=== PATIENT | female | born 1945 | race Caucasian/White ===

== ENCOUNTER 2018-09-20 13:24 | Outpatient (CLI) | payer MEDICARE, OTHER ==
--- NOTE | 2018-09-20 14:40 | MRI ---
MR of the left shoulder without contrast INDICATION: Left shoulder pain. Concern for tear of the left rotator cuff TECHNIQUE: Sagittal T1, axial and coronal PD fat sat, sagittal and coronal T2 fat sat images were obt ained of the left shoulder. COMPARISON: None FINDINGS: Mild motion artifact limits image detail Rotator cuff: There is a high-grade bursal surface tear involving the anterior supraspinatus at the f ootprint measuring 0.4 x 1.0 cm in its greatest AP and mediolateral dimensions respectively. This involves approximately 90% of the tendon thickness. There is severe supraspinatus tendinosis and mode rate infraspinatus tendinosis. Glenohumeral joint: There is mild osteoarthrosis of the glenohumeral joint. There is moderate chondro sis involving the inferior humeral head and inferior glenoid articular surface. Glenoid labrum: There is abnormal linear increased T2 signal along the superior glenoid labrum extend ing into the biceps anchor on image 10 of series 7. This also extends into the posterior superior glenoid labrum. Findings are suspicious for a type IV SLAP tear. Biceps tendon and biceps anchor: The biceps tendon is located. There is abnormal linear signal involv ing the biceps anchor suspicious for tear. Acromion clavicular joint: There is moderate AC joint osteoarthrosis. Subacromial subdeltoid space: No appreciable fluid. Axillary region: No lymphadenopathy. Surrounding left shoulder musculature: No muscular atrophy is evident. IMPRESSION: 1. High-grade bursal surface tear of the anterior supraspinatus at the footprint superimposed on chau re supraspinatus tendinosis and moderate infraspinatus tendinosis. 2. Findings highly suspicious for a type IV SLAP tear of the glenoid labrum. 3. Moderate AC joint osteoarthrosis. 4. Mild glenohumeral joint osteoarthrosis.
== END 2018-09-20 13:25 | disposition home or self-care (01) ==
LOC: BICMRI 13:24
PROVIDERS: ATTEND Orthopaedic Surgery
DX: M75.102 Unspecified rotator cuff tear or rupture of left shoulder, not specified as traumatic (principal); M19.011 Primary osteoarthritis, right shoulder; M75.91 Shoulder lesion, unspecified, right shoulder

== ENCOUNTER 2018-11-10 00:47 | Outpatient (CLI) | payer MEDICARE, OTHER ==
[2018-11-10 14:22] LABS: #Basophils 0.1 thou/uL (0.0-0.2); #Eosinphils 0.1 thou/uL (0.0-0.7); #Lymphocytes 1.8 thou/uL (1.20-3.40); #Monocytes 0.8 thou/uL (0.11-0.59); #Neutrophils 4.8 thou/uL (1.40-6.50); %Basophils 0.9 % (0.0-1.0); %Eosinophils 1.4 % (0.0-10.0); %Monocytes 10.1 % (0.0-10.0); %Neutrophils 63.6 % (42.0-75.0); Hemoglobin 13.5 g/dL (12.0-16.0); Mean Corpuscular HGB CONC 35.2 g/dL (32.0-36.0); Mean Corpuscular Hemoglobin 34.8 pg (27.0-31.0); Mean Corpuscular Volume 98.9 fL (78.0-98.0); Mean Platelet Volume 7.1 fL (7.4-10.4); Platelet Count 281 thou/uL (130-400); RBC Distribution Width 11.4 % (11.5-14.5); Red Blood Cell (RBC) Count 3.89 mill/uL (4.20-5.40); White Blood Cell (WBC) Count 7.5 thou/uL (4.8-10.8)
[2018-11-10 14:57] LABS: Anion Gap 13 mmol/L (10-20); BUN (Urea Nitrogen) 12 mg/dL (9.8-20.1); Calc. Creatinine Clearance 0 mL/min (70-130); Calcium 9.9 mg/dL (7.8-10.44); Carbon Dioxide 24 mmol/L (23-31); Chloride 106 mmol/L (98-107); Estimated GFR-MDRD 80; Glucose 89 mg/dL (83-110); Potassium 4.1 mmol/L (3.5-5.1); Sodium 139 mmol/L (136-145)
== END 2018-11-10 00:48 | disposition home or self-care (01) ==
LOC: LABBT 00:47
PROVIDERS: ATTEND Orthopaedic Surgery
DX: Z01.818 Encounter for other preprocedural examination (principal); M75.102 Unspecified rotator cuff tear or rupture of left shoulder, not specified as traumatic
CPT/HCPCS: 80048; 85025; 93005; 93010

== ENCOUNTER 2020-02-07 07:55 | Outpatient (CLI) | payer MEDICARE, OTHER ==
[2020-02-07 14:23] LABS: #Basophils 0.1 thou/uL (0.0-0.2); #Eosinphils 0.1 thou/uL (0.0-0.7); #Lymphocytes 1.6 thou/uL (1.20-3.40); #Monocytes 0.5 thou/uL (0.11-0.59); #Neutrophils 3.5 thou/uL (1.40-6.50); %Eosinophils 1.2 % (0.0-10.0); %Lymphocytes 27.4 % (21.0-51.0); %Monocytes 9.4 % (0.0-10.0); %Neutrophils 61.1 % (42.0-75.0); Hemoglobin 13.3 g/dL (12.0-16.0); Mean Corpuscular HGB CONC 33.9 g/dL (32.0-36.0); Mean Corpuscular Hemoglobin 33.8 pg (27.0-31.0); Mean Corpuscular Volume 99.7 fL (78.0-98.0); Mean Platelet Volume 7.7 fL (7.4-10.4); Platelet Count 265 thou/uL (130-400); RBC Distribution Width 11.4 % (11.5-14.5); Red Blood Cell (RBC) Count 3.94 mill/uL (4.20-5.40); White Blood Cell (WBC) Count 5.8 thou/uL (4.8-10.8)
[2020-02-07 14:47] LABS: Anion Gap 14 mmol/L (10-20); BUN (Urea Nitrogen) 11 mg/dL (9.8-20.1); Calc. Creatinine Clearance 0 mL/min (70-130); Calcium 9.4 mg/dL (7.8-10.44); Carbon Dioxide 25 mmol/L (23-31); Chloride 105 mmol/L (98-107); Estimated GFR-MDRD 88; Glucose 93 mg/dL (83-110); Potassium 4.3 mmol/L (3.5-5.1); Sodium 140 mmol/L (136-145)
[2020-02-08 13:02] LABS: SARS-CoV-2 MS2 Positive; SARS-CoV-2 N Gene Negative; SARS-CoV-2 S Gene Negative; SARS-CoV-2 by NAA Not Detected (NotDetected); SARS-CoV-2 orf1ab Negative
--- NOTE | 2020-02-08 20:53 | EKG ---
Test Reason : Blood Pressure : / mmHG Vent. Rate : 067 BPM Atrial Rate : 067 BPM P-R Int : 180 ms QRS Dur : 090 ms QT Int : 418 ms P-R-T Axes : 072 087 034 degrees QTc Int : 441 ms Normal sinus rhythm Normal ECG No previous ECGs available Confirmed by Ralph STEELE ([id number]) on 02/08/2020 8:53:07 PM Referred By: SERGIO Confirmed By:Ralph STEELE
== END 2020-02-07 07:56 | disposition home or self-care (01) ==
LOC: LABBT 07:55
PROVIDERS: ATTEND Orthopaedic Surgery
DX: Z01.818 Encounter for other preprocedural examination (principal); Z20.828 Contact with and (suspected) exposure to other viral communicable diseases; M19.011 Primary osteoarthritis, right shoulder
CPT/HCPCS: 80048; 85025; U0003; 87635; 93005; 93010

== ENCOUNTER 2020-02-07 11:15 | Inpatient (IN) | payer MEDICARE, OTHER ==
[2020-02-08 10:33] VITALS: BMI 20.9
[2020-02-09] MEDS ORDERED: Fentanyl 100 MCG/2 ML VIAL ONE ×2 (06:09→06:48)
[2020-02-09] MEDS ORDERED: Vancomycin 1 GM/200 ML BAG ONE (06:09)
[2020-02-09] MEDS ORDERED: Tranexamic Acid 1,000 MG/10 ML VIAL ONE (06:09)
[2020-02-09] MEDS ORDERED: Sodium Chloride 0.9% 100 ML ONE (06:10)
[2020-02-09] MEDS ORDERED: Midazolam HCl 2 mg/2 ml Vial ONE (06:48)
[2020-02-09] MEDS ORDERED: Lidocaine 1% (PF) 30 ML VIAL ONE (06:49)
[2020-02-09] MEDS ORDERED: traMADol HCl 50 MG TAB PO PRN ×4 (06:56→07:57)
[2020-02-09] MEDS ORDERED: HYDROcodone/Acetaminophen 10/325 mg Tablet PO PRN ×3 (06:56→07:57)
[2020-02-09] MEDS ORDERED: Aspirin 81 mg Enteric Coated Tablet PO SCH (07:00)
[2020-02-09] MEDS ORDERED: Ondansetron PF 4 MG/2 ML Vial IVP PRN (07:57)
[2020-02-09] MEDS ORDERED: Promethazine HCl 25 MG/ML VIAL IM PRN ×2 (07:57→08:57)
[2020-02-09] MEDS ORDERED: Ropivacaine 0.2% 550 ML 550 ML NERVE BLCK SCH (07:57)
[2020-02-09] MEDS ORDERED: Zolpidem Tartrate 5 MG TAB PO PRN (07:57)
[2020-02-09] MEDS ORDERED: Ondansetron HCl/PF 4 MG/2 ML Vial IVP PRN (08:57)
[2020-02-09] MEDS ORDERED: Promethazine HCl 25 MG/ML VIAL SLOW IVP PRN (08:57)
[2020-02-09] MEDS ORDERED: INULIN 2 GM PO SCH (09:00)
[2020-02-09] MEDS ORDERED: Ondansetron PF 4 MG/2 ML Vial ONE (09:59)
[2020-02-09] MEDS ORDERED: Ropivacaine 0.2% HCl/PF (40 MG/20 ML VIAL) ONE (09:59)
[2020-02-09] MEDS ORDERED: PHENYLEPHRINE-NS 100 MCG/ML 10 ML SYRINGE ONE (09:59)
[2020-02-09] MEDS ORDERED: Glycopyrrolate 0.2 MG/ML 5 ML SYRINGE ONE (09:59)
[2020-02-09] MEDS ORDERED: Lidocaine 1% PF 5 ML VIAL ONE (09:59)
[2020-02-09] MEDS ORDERED: PROPOFOL 200 MG/20 ML VIAL ONE (09:59)
[2020-02-09] MEDS ORDERED: Rocuronium Bromide 10 MG/ML (10ML VIAL) ONE (09:59)
[2020-02-09] MEDS ORDERED: Ropivacaine 0.5% HCl/PF (150 MG/30 ML VIAL) ONE (09:59)
[2020-02-09] MEDS ORDERED: Ketorolac Tromethamine 30 MG/ML VIAL ONE (09:59)
[2020-02-09] MEDS: Multivitamins CHEW w/Iron Tablet PO SCH (13:43)
[2020-02-09] MEDS ORDERED: CEFAZOLIN 2 GM in Premix Bag 1 BAG IVPB SCH (14:00)
[2020-02-09] MEDS: Dextrose 5 %-0.45 % NaCl 1,000 ML IV SCH (14:16)
--- NOTE | 2020-02-09 14:16 | OP ---
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 PROCEDURE: Left total shoulder arthroplasty with biceps tenodesis. HAM TRIMMER: Marie Caro PA-C. BLOOD LOSS: 200. SPECIMEN: None. DRAINS: None. COMPLICATION: None. IMPLANTS USED: Glenoid Perform Cortiloc small 40, stem flex 4C, head flex 43 x 16. NARRATIVE REPORT: After standard deltopectoral approach, I examined the biceps tendon sheath which was inflamed and had a very thick bursal layer over the top with underlying ganglion. Biceps was opened. The biceps tendon sheath was opened. Biceps was in poor condition. It was taken off the superior glenoid tubercle and tacked and then tenodesed using #5 Ethibond suture to bone below the joint. The subscapularis was taken off using an osteotome to make a small lesser trochanteric osteotomy, tagged with four #5 Ethibond sutures. Head was dislocated. Osteophytes were trimmed. I released the anterior capsule, got the subscapularis to an elastic consistency. I then cut the humeral head at a 135-degree angle and trimmed the osteophytes. The head was then broached and sized appropriately. A trial prosthesis was left in the shaft and I approached the glenoid. Bone spurs were removed from around the glenoid. True center of the glenoid was identified. I made a single drill hole and reamed with an appropriate size reamer, trimmed osteophytes, punched the keel and did a trial reduction with the glenoid which appeared to be an appropriate fit. Trials were removed and irrigation was performed. The glenoid was punched into place and cement was allowed to cure. Extraneous cement was removed. Attention was turned back to the humerus where trial heads were used and the appropriate size was confirmed with the appropriate elasticity of the tissues. Trial was removed. Irrigation was performed. Four #5 Ethibond sutures were placed through the lesser tuberosity. The permanent implant was impacted into place. The subscapularis was repaired in a double-row fashion. The rotator interval was repaired with #1 Ethibond. Irrigation performed again. Deltopectoral interval was tacked closed with 0 Vicryl, subcutaneous closed with 2-0 Vicryl. The skin was closed with beckie. Sterile dressings applied. The patient was placed in a sling. There were no complications. Job ID: [id number]
[2020-02-09] MEDS: CEFAZOLIN 2 GM in Premix Bag 1 BAG IVPB SCH (16:21)
[2020-02-09] MEDS: Fentanyl 100 MCG/2 ML VIAL SLOW IVP PRN ×2 (19:09→20:26)
[2020-02-09] MEDS: HYDROcodone/Acetaminophen 10/325 mg Tablet PO PRN (22:11)
[2020-02-10] MEDS: Fentanyl 100 MCG/2 ML VIAL SLOW IVP PRN ×3 (00:11→06:43)
[2020-02-10] MEDS: CEFAZOLIN 2 GM in Premix Bag 1 BAG IVPB SCH (00:11)
[2020-02-10] MEDS: Dextrose 5 %-0.45 % NaCl 1,000 ML IV SCH ×2 (00:12→10:24)
[2020-02-10] MEDS: HYDROcodone/Acetaminophen 10/325 mg Tablet PO PRN ×2 (08:55→15:36)
[2020-02-10] MEDS: Multivitamins CHEW w/Iron Tablet PO SCH (08:55)
[2020-02-10 15:54] VITALS: BP 154/74; TEMP 98.1
== END 2020-02-10 16:55 | disposition home or self-care (01) | DRG 483 ==
LOC: SURG A 02-09 05:46
PROVIDERS: ADMIT Orthopaedic Surgery; ATTEND Orthopaedic Surgery
PROC: 0RRK0JZ Replacement of Left Shoulder Joint with Synthetic Substitute, Open Approach (ICD-10-PCS; principal; 2020-02-09)
PROC: 0LS40ZZ Reposition Left Upper Arm Tendon, Open Approach (ICD-10-PCS; 2020-02-09)
DX: M19.012 Primary osteoarthritis, left shoulder (principal); M77.9 Enthesopathy, unspecified; I10 Essential (primary) hypertension; K21.9 Gastro-esophageal reflux disease without esophagitis; Z79.899 Other long term (current) drug therapy; Z87.891 Personal history of nicotine dependence; Z85.828 Personal history of other malignant neoplasm of skin
CPT/HCPCS: 80048; 85025; 87635; 93005; A4306; C1713; J0690; J1885; J2001; J2250; J2405; J2550; J2704; J2795; J3010; J3370; J3490; U0003